=== PATIENT | female | born 1990 | race African-American/Black ===

== ENCOUNTER 2018-02-12 21:59 | Emergency (ER) | payer SELFPAY ==
[~2018-02-12] VITALS: Ht 167.6 cm; Wt 61.0 kg
[2018-02-12 23:09] LABS: CLARITY URINE CLEAR (CLEAR); COLOR URINE YELLOW (YELLOW); KETONES URINE TRACE (NEGATIVE); LEUKOCYTE ESTERASE URINE TRACE (NEGATIVE); NITRITE URINE NEGATIVE (NEGATIVE); OCCULT BLOOD URINE NEGATIVE (NEGATIVE); PH URINE 5.5 (4.5-8.0); PROTEIN URINE NEGATIVE (NEGATIVE); SPECIFIC GRAVITY URINE 1.027 (1.005-1.030)
[2018-02-13] MEDS ORDERED: KETOROLAC 60MG/2ML VIAL IM STA (03:29)
[2018-02-13] MEDS ORDERED: AZITHROMYCIN 500 MG TABLET PO NR (04:15)
[2018-02-13] MEDS ORDERED: CEFTRIAXONE SODIUM 250 MG/VIAL IM NR (04:15)
[2018-02-13] MEDS ORDERED: LIDOCAINE HCL/PF 1% 10 MG/ML 5ML VIAL IJ ONE (04:45)
[2018-02-13 04:57] VITALS: BP 115/59
[2018-02-15 04:16] LABS: CHLAMYDIA TRACHOMATIS NAA Negative (Negative); NEISSERIA GONORRHOEAE NAA Negative (Negative)
== END 2018-02-13 06:12 | disposition home or self-care (01) ==
LOC: ER 21:59
DX: N73.9 Female pelvic inflammatory disease, unspecified (principal); F17.210 Nicotine dependence, cigarettes, uncomplicated; F12.90 Cannabis use, unspecified, uncomplicated
CPT/HCPCS: 76830; 76856; 81003; 81025; 87086; 87210; 87491; 87591; 96372; 99284; J0696; J1885; J3490

== ENCOUNTER 2019-03-15 08:09 | Emergency (ER) | payer MEDICAID ==
[~2019-03-15] VITALS: Ht 167.6 cm; Wt 59.0 kg
[2019-03-15 08:12] VITALS: BP 133/70
== END 2019-03-15 08:52 | disposition home or self-care (01) ==
LOC: ER 08:09
DX: R41.82 Altered mental status, unspecified (principal); Z53.21 Procedure and treatment not carried out due to patient leaving prior to being seen by health care provider
CPT/HCPCS: 99283